=== PATIENT | male | born 1975 | race Two or more races ===

== ENCOUNTER 2019-09-24 21:53 | Emergency (ER) | payer BC ==
[~2019-09-24] VITALS: Ht 160 cm; Wt 61.3 kg
[2019-09-24] MEDS ORDERED: CHLO15MO2 PO (22:30)
--- NOTE | 2019-09-24 22:31 | PHYS DOC ---
Past Medical History Past Medical History: No Pertinent History Past Surgical History: No Surgical History Smoking Status: Never Smoker Alcohol Use: None Drug Use: None General Adult EDM: Chief Complaint: DENTAL PROBLEM HPI: HPI: Patient is a 43 year old male presents with his friend with report of tongue lac eration to right side of his tongue which occurred just prior to arrival. Patient reports he had bit his tongue while playing [employer] approximately 40 minutes prior to arrival. Reports another player knocked into him causing him to bite his tongue. Patient reports bleeding now well controlled. Denies other injury. Denies use of blood thinners. Review of Systems: Review of Systems: Constitutional: Denies fever or chills Eyes: Denies redness or eye pain HENT: Denies nasal congestion or sore throat; reports tongue laceration Respiratory: Denies cough or shortness of breath Cardiovascular: Denies chest pain or palpitations GI: Denies abdominal pain, nausea, or vomiting : Denies dysuria or hematuria Musculoskeletal: Denies back pain or joint pain Integument: Denies rash or skin lesions Neurologic: Denies headache, focal weakness or sensory changes Complete systems were reviewed and found to be within normal limits, except as documented in this note. Allergies: Allergies: Allergies Coded Allergies Type Severity Reaction Last Updated Verified No Known Drug Allergies 09/24/19 No Physical Exam: PE: Constitutional: Well developed, well nourished, no acute distress, non-toxic appearance HENT: Normocephalic, atraumatic, oropharynx moist, 2 cm lacerated flap to right lateral tongue which does not go through and through. No active bleeding noted Eyes: Conjunctiva normal, no discharge Neck: Normal range of motion, no tenderness, supple Lungs & Thorax: No respiratory distress, equal chest rise and fall Skin: Warm, dry, no erythema, no rash Extremities: No tenderness, ROM intact, no edema Neurologic: Alert and oriented X 3, no focal deficits noted Psychologic: Affect normal, judgment normal Current Patient Data: Vital Signs: Vital Signs Date Time Temp Pulse Resp B/P (MAP) Pulse Ox O2 Delivery O2 Flow Rate FiO2 09/24/19 22:14 98.5 92 18 160/95 (116) 99 Room Air 98.5 EKG: EKG: [] Radiology/Procedures: Radiology/Procedures: [] Course & Med Decision Making: Course & Med Decision Making Patient presents with tongue laceration. Small flap appreciated. Patient offered suture repair with probability of 1-2 subcutaneous stitches. Patient elects to try to allow time to heal by secondary intention. Given location without through and through high likelihood wound will heal without any complication. Patient advised to keep mouth clean and to avoid foods that might get stuck in wound. Prescription for Peridex provided. Pain addressed with ibuprofen. Patient stable for discharge with outpatient follow-up with PCP. Discussed findings and plan with patient and friend, who acknowledge understanding and agreement. Jorge Disclaimer: Jorge Disclaimer: This electronic medical record was generated, in whole or in part, using a voice recognition dictation system. Departure Departure Impression: Primary Impression: Laceration of tongue Qualified Codes: S01.512A - Laceration without foreign body of oral cavity, initial encounter Disposition: HOME, SELF-CARE Condition: STABLE Referrals: ARMINDA HIGUERA DO (PCP) Patient Instructions: Diet - Soft, Tongue Laceration, [id number] Additional Instructions: Keep mouth clean. Rinse with water after eating or drinking anything. Refrain from hard foods and foods with sharp edges (crackers, chips, etc). Use over the counter Tylenol and/or Ibuprofen for pain or discomfort. Scripts Chlorhexidine Gluconate (PERIDEX) 15 Ml Mouthwash 15 ML PO BID for 7 Days, #473 ML 0 Refills Prov: INGRID LAM DO 09/24/19 Justicifation of Admission Dx: Justifications for Admission: Justification of Admission Dx: N/A INGRID LAM DO Sep 24, 2019 22:31
[2019-09-24] MEDS ORDERED: IBUPROFEN 400 MG TABLET. PO ONE ×2 (22:49→23:00)
[2019-09-24 22:55] VITALS: BP 146/100
== END 2019-09-24 22:54 | disposition home or self-care (01) ==
LOC: ER 21:53
DX: S01.512A Laceration without foreign body of oral cavity, initial encounter (principal); W51.XXXA Accidental striking against or bumped into by another person, initial encounter; Y93.66 Activity, soccer; Y92.89 Other specified places as the place of occurrence of the external cause; Y99.8 Other external cause status
CPT/HCPCS: 12011; 99282